=== PATIENT | male | born 1980 | race African-American/Black ===

== ENCOUNTER 2020-05-15 20:52 | Emergency (ER) | payer OTHER ==
[~2020-05-15] VITALS: Ht 175.3 cm; Wt 81.8 kg
[2020-05-15] MEDS ORDERED: TETRACAINE 0.5% OPHTH SOLUTION 4ML BOTTLE. ONE (21:22)
[2020-05-15] MEDS ORDERED: FLUORESCEIN OPHTH TEST STRIP. ONE (21:22)
[2020-05-15] MEDS ORDERED: TETANUS AND DIPHTHERIA TOX/PF 0.5 ML DISP.SYRIN. VAX IM ONE (21:45)
[2020-05-15] MEDS ORDERED: oxyCODONE/APAP 5/325 1 TAB TABLET PO ONE (21:45)
[2020-05-15] MEDS ORDERED: TETRACAINE 0.5% OPHTH SOLUTION 4ML BOTTLE. OD ONE (22:00)
[2020-05-15] MEDS ORDERED: FLUORESCEIN OPHTH TEST STRIP. OD ONE (22:00)
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
[2020-05-15 22:28] VITALS: BP 129/76
== END 2020-05-15 22:30 | disposition home or self-care (01) ==
LOC: ER 20:52 → EEVIPCON 20:52 → ER 22:30
DX: S01.111A Laceration without foreign body of right eyelid and periocular area, initial encounter (principal); F41.9 Anxiety disorder, unspecified; F17.200 Nicotine dependence, unspecified, uncomplicated; Y08.89XA Assault by other specified means, initial encounter; Y93.89 Activity, other specified; Y92.89 Other specified places as the place of occurrence of the external cause; Y99.8 Other external cause status
CPT/HCPCS: 12011; 70450; 70486; 90471; 90714; 99285